=== PATIENT | female | born 1960 | race Caucasian/White ===

== ENCOUNTER 2018-03-17 16:43 | Emergency (ER) | payer OTHER ==
[~2018-03-17] VITALS: Ht 165.1 cm; Wt 61.2 kg
[~2018-03-17 16:43] MED LIST: ACET-787 PO; ALPR2TAB1 PO; AZEL137S8 NS; BUPROPION; CARI350T PO; CYCL10TA79 PO; DOXE50CA10 PO; IBUP200S18 PO; LORA10OD44 PO; METO-460 PO; MONT5CTB22 PO; OMEP40EC1 PO; SUMA100T1 PO; VERA240C3 PO; [UNRECOGNIZED DRUG - CODE] PO; [UNRECOGNIZED DRUG - OTHER]; [UNRECOGNIZED DRUG - OTHER] PO; [UNRECOGNIZED DRUG - OTHER] PO; [UNRECOGNIZED DRUG - OTHER] TD
--- NOTE | 2018-03-17 17:00 | NUR ---
PT AMBULATED TO ER BED 2.
[2018-03-17 17:03] VITALS: BP 141/80
--- NOTE | 2018-03-17 17:07 | NUR ---
58/F PRESENT TO ER C/O MEDICATION REFILL. PT STATES SHE RAN OUT OF HER PRESCRIPTION ON XANAX 2MG AND CANNOT SEE PDM BECAUSE THERE IS NO APPOINTMENT. AAOx4, PERRLA, BREATHING EVEN AND UNLABORED, PAIN 0/10. VSS. ERMD NOTIFIED OF PATIENT STATUS.
--- NOTE | 2018-03-17 18:00 | NUR ---
Patient being evaluated by physician at bedside.
--- NOTE | 2018-03-17 19:04 | NUR ---
Patient discharged with v/s stable. Written and verbal after care instructions given and explained. Patient alert, oriented and verbalized understanding of instructions. Ambulatory with steady gait. All questions addressed prior to discharge. ID band removed. Patient advised to follow up with PMD. Rx of ALPRAZOLAM 1MG TABLET given. Patient educated on indication of medication including possible reaction and side effects. Opportunity to ask questions provided and answered.
[2018-03-17 19:05] VITALS: BP 132/72
== END 2018-03-17 19:04 | disposition home or self-care (01) ==
LOC: MED 16:43
DX: F41.9 Anxiety disorder, unspecified (principal); F31.9 Bipolar disorder, unspecified; Z79.899 Other long term (current) drug therapy; Z76.0 Encounter for issue of repeat prescription
CPT/HCPCS: 99283